=== PATIENT | female | born 1975 | race Caucasian/White ===

== ENCOUNTER 2016-12-07 17:13 | Emergency (ER) | payer MEDICAID ==
[2016-12-07 17:21] VITALS: BP 126/81
--- NOTE | 2016-12-07 17:52 | EDM.PDOC ---
ED HPI GENERAL MEDICAL PROBLEM - General Chief Complaint: Neuro Symptoms/Deficits Stated Complaint: LT SIDED NUMBNESS Time Seen by Provider: 12/07/16 17:30 Source of Information: Reports: Patient History Limitations: Reports: No Limitations - History of Present Illness INITIAL COMMENTS - FREE TEXT/NARRATIVE: Patient presents to ER with with concerns of left arm numbness and decreased strength. States arm feels very uncoordinated. She relates that around 1130 today she began to have left shoulder pain that eventually radiated down to her below her shoulder blade. Started while at work. 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 Went home but the pain has spread to her shoulder more. She now over the last 45 minutes has had a heaviness in her arm and it feels "awkward and numb". Feels weak. The pain in her shoulder is now radiating to her chest as well. Did feel pain with full inspiratory effort. No nausea. Was able to walk on her own in to ER. Relates only numbness to the left lateral thigh. Denies any difficulty with swallowing , visual defects. No seizure activity. Has not had any recent trauma. No real pain in her neck. Onset: Gradual Duration: Hour(s):, Getting Worse Location: Reports: Upper Extremity, Left Associated Symptoms: Reports: Weakness. Denies: Fever/Chills, Loss of Appetite , Nausea/Vomiting, Seizure, Syncope Left Arm Pain Score (Numeric/FACES): 7 - Related Data Allergies Allergy/AdvReac Type Severity Reaction Status Date / Time cefaclor [From Ceclor] Allergy Cannot Verified 01/01/16 11:34 Remember clarithromycin [From Biaxin] Allergy Hives Verified 01/01/16 11:34 epinephrine [From EpiPen] Allergy Cannot Verified 01/01/16 11:34 Remember erythromycin base Allergy Hives Verified 01/01/16 11:34 [Erythromycin Base] levofloxacin [From Levaquin] Allergy Hives Verified 01/01/16 11:34 Penicillins Allergy Hives Verified 01/01/16 11:34 Home Meds: Home Meds Albuterol [Ventolin HFA] 1 puff INH DAILY PRN 03/26/14 [History] Butalb/Acetaminophen/Caffeine [Esgic 50-325-40 MG] 1 tab PO DAILY PRN 03/26/14 [ History] lamoTRIgine [Lamictal] 1 tab PO DAILY 03/26/14 [History] Estradiol 1 mg PO DAILY 06/07/15 [History] Levothyroxine 75 mcg PO DAILY 06/07/15 [History] Vortioxetine Hydrobromide [Trintellix] 20 mg PO DAILY 06/07/15 [History] buPROPion [Wellbutrin XL] 150 mg PO DAILY 06/07/15 [History] Acetaminophen [Tylenol] 2 tab PO Q4H PRN 01/01/16 [History] Dextroamphetamine/Amphetamine [Dextroamp-Amphetamin 10 mg Tab] 1 tab PO BID [History] Diethylpropion HCl [Diethylpropion HCl ER] 1 tab PO DAILY 01/01/16 [History] Ibuprofen 2 tab PO Q6H PRN 01/01/16 [History] Past Medical History HEENT History: Reports: Allergic Rhinitis, Impaired Vision, Sinusitis Cardiovascular History: Reports: Heart Murmur, High Cholesterol Respiratory History: Reports: Asthma, Bronchitis, Recurrent, Sleep Apnea Gastrointestinal History: Reports: GERD, PUD Genitourinary History: Reports: UTI, Recurrent 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 Musculoskeletal History: Reports: Back Pain, Chronic, Gout Neurological History: Reports: Concussion, Migraines, Seizure Psychiatric History: Reports: Anxiety, Depression, Panic Attack, PTSD Endocrine/Metabolic History: Reports: Hypothyroidism, Obesity/BMI 30+, Vitamin D Deficiency Hematologic History: Reports: Anesthesia Reaction, Anemia - Past Surgical History HEENT Surgical History: Reports: Naso-Sinus Surgery GI Surgical History: Reports: Cholecystectomy Neurological Surgical History: Reports: Scoliosis Social & Family History - Family History Family Medical History: Noncontributory - Tobacco Use Smoking Status *Q: Never Smoker Years of Tobacco use: 1 Packs/Tins Daily: 0.5 Used Tobacco, but Quit: No Month Tobacco Last Used: april Second Hand Smoke Exposure: Yes - Caffeine Use Caffeine Use: Reports: None - Alcohol Use Days Per Week of Alcohol Use: 0 - Recreational Drug Use Recreational Drug Use: No ED ROS GENERAL - Review of Systems Review Of Systems: See Below Constitutional: Reports: Weakness. Denies: Fever, Chills, Malaise, Decreased Appetite HEENT: Reports: No Symptoms Respiratory: Denies: Shortness of Breath, Wheezing, Cough Cardiovascular: Reports: Chest Pain. Denies: Edema, Lightheadedness, Syncope Endocrine: Denies: Fatigue GI/Abdominal: Denies: Abdominal Pain, Nausea, Vomiting : Denies: Incontinence Musculoskeletal: Reports: Shoulder Pain, Arm Pain Skin: Reports: No Symptoms Neurological: Reports: Paresthesia, Tingling, Weakness. Denies: Difficulty Walking, Gait Disturbance Psychiatric: Reports: No Symptoms ED EXAM, NEURO - Physical Exam Exam: See Below Exam Limited By: No Limitations General Appearance: Alert, WD/WN, No Apparent Distress Eye Exam: Bilateral Eye: EOMI, PERRL Ears: Normal External Exam, Normal TMs Nose: Normal Inspection, Normal Mucosa, No Blood Throat/Mouth: Normal Inspection, Normal Oropharynx Head Exam: Normocephalic Neck: Normal Inspection, Supple, Full Range of Motion, Tender Lateral (tender to left trapezius, lateral neck.) Respiratory/Chest: No Respiratory Distress, Lungs Clear, Normal Breath Sounds Cardiovascular: Normal Peripheral Pulses, Regular Rate, Rhythm GI/Abdominal: Normal Bowel Sounds, Soft, Non-Tender Neurological: Alert, Normal Gait, Oriented x 3, Abnormal Finger to Nose, Abnormal Motor, Other (abnormal ROLA; difficulty controlling motion with arm; uncoordinated.) Back Exam: Normal Inspection, Full Range of Motion Extremities: Normal Inspection, Other (abnormal range of motion to left arm) Psychiatric: Normal Affect, Normal Mood Skin Exam: Warm, Dry Course - Vital Signs Last Recorded V/S: Last Vital Signs Temp 97.3 F 12/07/16 17:19 Pulse 90 12/07/16 17:19 Resp 20 12/07/16 17:19 BP 126/81 12/07/16 17:19 Pulse Ox 96 12/07/16 17:19 - Orders/Labs/Meds Orders: Active Orders 24 hr Category Date Time Status C-Spine [Cervical Spine wo Cont] [CT] Stat Exams 12/07/16 18:23 Taken Chest 2V [CR] Timed Exams 12/07/16 17:40 Taken Head wo Cont [CT] Stat Exams 12/07/16 17:38 Taken Labs: Laboratory Tests 12/07/16 12/07/16 12/07/16 Range/Units 17:37 17:38 17:38 WBC 7.2 (5.0-10.0) 10^3/uL RBC 4.05 (4.00-5.50) 10^6/uL Hgb 11.5 L (12.0-16.0) g/dL Hct 35.3 L (37.0-47.0) % MCV 87.2 (82.0-94.0) fL MCH 28.4 (27.0-32.0) pg MCHC 32.6 L (33.0-38.0) g/dL RDW Coeff of Jaren 13.7 (11.0-15.0) % Plt Count 209 (150-400) 10^3/uL Neut % (Auto) 48.5 (35-85) % Lymph % (Auto) 43.8 (10-55) % [place] % (Auto) 6.2 (0-16) % Eos % (Auto) 1.4 (0-5) % Baso % (Auto) 0.1 (0-3) % Neut # (Auto) 3.50 (1.80-7.00) 10^3/uL Lymph # (Auto) 3.17 (1.00-4.80) 10^3/uL [place] # (Auto) 0.45 (0.00-0.80) 10^3/uL Eos # (Auto) 0.10 (0.00-0.45) 10^3/uL Baso # (Auto) 0.01 10^3/uL D-Dimer, Quantitative 0.36 (0.00-0.50) Sodium 142 (136-145) mEq/L Potassium 3.6 (3.5-5.0) mEq/L Chloride 106 (98-106) mEq/L Carbon Dioxide 25 (21-32) mmol/L BUN 15 (7-18) mg/dL Creatinine 0.8 (0.6-1.0) mg/dL Est Cr Clr Drug Dosing 100.07 mL/min Estimated GFR (MDRD) > 60 (>=60) mL/min Glucose 105 H (75-99) mg/dL Calcium 8.9 (8.4-10.1) mg/dL Lactate Dehydrogenase 186 (100-190) U/L Creatine Kinase 173 (21-215) U/L Troponin I < 0.017 (0.00-0.06) ng/mL - Re-Assessments/Exams Free Text/Narrative Re-Assessment/Exam: 12/07/16 1830 Labs are normal. Awaiting CT results. 12/07/16 19:30 Contacted Mabel for consult on patient. Recommend MRI of brain tomorrow. Will give injections now for muscle spasms/pain in shoulder. Departure - Departure Time of Disposition: 18:58 Disposition: Home, Self-Care 01 Condition: Fair Clinical Impression: Arm paresthesia, left Left shoulder pain Qualifiers: Chronicity: acute Qualified Code(s): M25.512 - Pain in left shoulder - Discharge Information Forms: ED Department Discharge Additional Instructions: 1. Rest 2. Ice or heat to shoulder blade region 3. Slow range of motion with left arm. 4. Will schedule MRI of brain tomorrow and notify you when scheduled 5. Return if any neurological changes occur - My Orders Last 24 Hours: My Active Orders 12/07/16 17:38 Head wo Cont [CT] Stat 12/07/16 17:40 Chest 2V [CR] Timed 12/07/16 18:23 C-Spine [Cervical Spine wo Cont] [CT] Stat - Assessment/Plan Last 24 Hours: My Active Orders 12/07/16 17:38 Head wo Cont [CT] Stat 12/07/16 17:40 Chest 2V [CR] Timed 12/07/16 18:23 C-Spine [Cervical Spine wo Cont] [CT] Stat
[2016-12-07 18:18] LABS: CHLORIDE,CL 106 mEq/L (98-106); SODIUM,NA 142 mEq/L (136-145)
[2016-12-07] MEDS ORDERED: Ketorolac 60 MG/2 ML SDV IM ONE (19:48)
== END 2016-12-07 20:15 | disposition home or self-care (01) ==
LOC: CC.ED 17:13
DX: M25.512 Pain in left shoulder (principal); E78.00 Pure hypercholesterolemia, unspecified; J45.909 Unspecified asthma, uncomplicated; E03.9 Hypothyroidism, unspecified; E66.9 Obesity, unspecified; F41.9 Anxiety disorder, unspecified; F32.9 Major depressive disorder, single episode, unspecified; Z90.49 Acquired absence of other specified parts of digestive tract; Z98.890 Other specified postprocedural states; D64.9 Anemia, unspecified; Z88.0 Allergy status to penicillin; Z88.1 Allergy status to other antibiotic agents; Z88.8 Allergy status to other drugs, medicaments and biological substances
CPT/HCPCS: 36415; 70450; 71020; 72125; 80048; 82550; 83615; 84484; 85025; 85379; 93005; 96372; 99284; J1885; J2360

== ENCOUNTER 2017-10-10 20:16 | Emergency (ER) | payer SELFPAY ==
[2017-10-10 20:24] VITALS: BP 149/99
--- NOTE | 2017-10-10 21:17 | EDM.PDOC ---
ED HPI GENERAL MEDICAL PROBLEM - General Chief Complaint: Laceration Stated Complaint: laceration right thumb Time Seen by Provider: 10/10/17 20:38 - History of Present Illness INITIAL COMMENTS - FREE TEXT/NARRATIVE: Vanessa is a 42 year old female who presents to the Ed with c/o laceration to her right thumb. She reports she was using a razor blade to make "Donya cups" when the razor blade caught and slipped and cut her right thumb. She reports it was bleeding pretty bad so she presented to the ED. She does report some numbness. Bleeding is controlled with pressure. Onset: Today, Sudden Onset Date: 10/10/17 Onset Time: 20:00 Location: Reports: Upper Extremity, Right Quality: Reports: Sharp Severity: Severe Associated Symptoms: Reports: No Other Symptoms Right 1-Thumb Pain Score (Numeric/FACES): 8 - Related Data Allergies Allergy/AdvReac Type Severity Reaction Status Date / Time cefaclor [From Ceclor] Allergy Cannot Verified 10/10/17 20:24 Remember clarithromycin [From Biaxin] Allergy Hives Verified 10/10/17 20:24 epinephrine [From EpiPen] Allergy Cannot Verified 10/10/17 20:24 Remember erythromycin base Allergy Hives Verified 10/10/17 20:24 [Erythromycin Base] levofloxacin [From Levaquin] Allergy Hives Verified 10/10/17 20:24 Penicillins Allergy Hives Verified 10/10/17 20:24 Home Meds: Home Meds Albuterol [Ventolin HFA] 1 puff INH DAILY PRN 03/26/14 [History] Butalb/Acetaminophen/Caffeine [Esgic 50-325-40 MG] 1 tab PO DAILY PRN 03/26/14 [ History] lamoTRIgine [Lamictal] 200 mg PO DAILY 03/26/14 [History] Estradiol 1 mg PO DAILY 06/07/15 [History] Levothyroxine 75 mcg PO DAILY 06/07/15 [History] Vortioxetine Hydrobromide [Trintellix] 20 mg PO DAILY 06/07/15 [History] buPROPion [Wellbutrin XL] 150 mg PO DAILY 06/07/15 [History] Acetaminophen [Tylenol] 2 tab PO Q4H PRN 01/01/16 [History] Dextroamphetamine/Amphetamine [Dextroamp-Amphetamin 10 mg Tab] 1 tab PO BID [History] Ibuprofen 2 tab PO Q6H PRN 01/01/16 [History] LORazepam 1 mg PO Q8H PRN 10/10/17 [History] Past Medical History HEENT History: Reports: Allergic Rhinitis, Impaired Vision, Sinusitis Cardiovascular History: Reports: Heart Murmur, High Cholesterol, Other (See Below) Other Cardiovascular History: hypotension Respiratory History: Reports: Asthma, Bronchitis, Recurrent, Sleep Apnea Gastrointestinal History: Reports: GERD, PUD Genitourinary History: Reports: UTI, Recurrent 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 Musculoskeletal History: Reports: Back Pain, Chronic, Gout Neurological History: Reports: Concussion, Migraines, Seizure Psychiatric History: Reports: ADD, Anxiety, Depression, Panic Attack, PTSD Endocrine/Metabolic History: Reports: Hypothyroidism, Obesity/BMI 30+, Vitamin D Deficiency Hematologic History: Reports: Anesthesia Reaction, Anemia - Past Surgical History HEENT Surgical History: Reports: Naso-Sinus Surgery GI Surgical History: Reports: Cholecystectomy Neurological Surgical History: Reports: Scoliosis Social & Family History - Family History Family Medical History: Noncontributory - Tobacco Use Smoking Status *Q: Current Every Day Smoker Years of Tobacco use: 5 Packs/Tins Daily: 0.2 Used Tobacco, but Quit: No Month/Year Tobacco Last Used: april Second Hand Smoke Exposure: Yes - Caffeine Use Caffeine Use: Reports: None - Alcohol Use Days Per Week of Alcohol Use: 0 - Recreational Drug Use Recreational Drug Use: No ED ROS GENERAL - Review of Systems Review Of Systems: ROS reveals no pertinent complaints other than HPI. ED EXAM, SKIN/RASH Exam: See Below Exam Limited By: No Limitations General Appearance: Alert, WD/WN, No Apparent Distress Peripheral Pulses: 2+: Radial (R) Skin: Other (Laceration) Location, Skin: Upper Extremity, Right (right thumb) Associated features: Tenderness. No: Warmth, Swelling Course - Vital Signs Last Recorded V/S: Last Vital Signs Temp 97.1 F 10/10/17 20:20 Pulse 76 10/10/17 20:20 Resp 20 10/10/17 20:20 BP 149/99 H 10/10/17 20:20 Pulse Ox 95 10/10/17 20:20 - Re-Assessments/Exams Free Text/Narrative Re-Assessment/Exam: Wound cleansed with wound high pressure cleaner. Superficial laceration closed with steri strips. Skin glue applied to area of steri strip attachment. Area covered with bandaid. Tolerated well. Departure - Departure Time of Disposition: 21:12 Disposition: Home, Self-Care 01 Condition: Good Clinical Impression: Laceration of right thumb Qualifiers: Encounter type: initial encounter Damage to nail status: without damage Foreign body presence: without foreign body Qualified Code(s): S61.011A - Laceration without foreign body of right thumb without damage to nail, initial encounter - Discharge Information Instructions: Laceration Care, Adult, [id number] Referrals: Michael Keith MD [Primary Care Provider] - Additional Instructions: Steri strips applied. Keep clean and dry for next 3 days Neosporin to affected area as needed once steri strips fall off Tylenol or ibuprofen as needed for pain Return to ER for any emergent needs Follow up with PCP as needed
== END 2017-10-10 21:20 | disposition home or self-care (01) ==
LOC: CC.ED 20:16
DX: S61.011A Laceration without foreign body of right thumb without damage to nail, initial encounter (principal); E66.9 Obesity, unspecified; J45.909 Unspecified asthma, uncomplicated; F17.210 Nicotine dependence, cigarettes, uncomplicated; Z88.8 Allergy status to other drugs, medicaments and biological substances; Z88.1 Allergy status to other antibiotic agents; Z88.0 Allergy status to penicillin; Z79.899 Other long term (current) drug therapy; W26.8XXA Contact with other sharp object(s), not elsewhere classified, initial encounter
CPT/HCPCS: 99282

== ENCOUNTER 2018-03-05 16:08 | Emergency (ER) | payer OTHER ==
[2018-03-05 16:54] VITALS: BP 119/81
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
== END 2018-03-05 17:55 | disposition home or self-care (01) ==
LOC: CC.ED 16:08
DX: S60.211A Contusion of right wrist, initial encounter (principal); S90.511A Abrasion, right ankle, initial encounter; S70.311A Abrasion, right thigh, initial encounter; Z88.8 Allergy status to other drugs, medicaments and biological substances; Z88.0 Allergy status to penicillin; Z88.1 Allergy status to other antibiotic agents; Z79.899 Other long term (current) drug therapy; V89.2XXA Person injured in unspecified motor-vehicle accident, traffic, initial encounter
CPT/HCPCS: 73090-RT; 73130-RT; 73610-RT; 73630-RT; 99284

== ENCOUNTER 2021-06-08 10:42 | Emergency (ER) | payer MEDICAID ==
[2021-06-08 10:46] VITALS: BP 115/74; PULSE 81
--- NOTE | 2021-06-08 11:23 | EDM.PDOC ---
ED HPI GENERAL MEDICAL PROBLEM - General Chief Complaint: General Stated Complaint: Post Seizure Time Seen by Provider: 06/08/21 10:58 Source of Information: Reports: Patient History Limitations: Reports: No Limitations - History of Present Illness INITIAL COMMENTS - FREE TEXT/NARRATIVE: This is a 45-year-old female patient that presented to the emergency department via [facility]. EMS reports that patient had a seizure that lasted about 2 minutes per bystanders. Patient is alert and oriented history upon arrival in the ER. States that she does have a history of seizure disorder and had not had a seizure for about 2 years up until about 3 weeks ago. In the last 3 weeks she has had 3 reported seizures. States that this time a year is very stressful for her. In the past she stated stress is a cause for her seizures. Has been taking lamotrigine for several years without adjustments that she is aware of. States that she has had intermittent diarrhea for about 1 week. Denies any other signs of illness such as fever, shortness of breath, nausea, or vomiting. Denies any urinary symptoms such as dysuria, urgency, pain with urination. Her last follow-up with her primary was in January for a yearly exam and she is on well aware if her lamotrigine levels have been checked. Denies trauma related to this occurrence of seizure. No incontinence of urine and states that she did void prior to seizure. Also states some weakness to the left arm which she states is normal. The seizure was described as a tonic- clonic in nature. Patient is not postictal however states she feels tired. Onset: Today - Related Data Allergies Allergy/AdvReac Type Severity Reaction Status Date / Time cefaclor [From Ceclor] Allergy Cannot Verified 06/08/21 10:46 Remember cefazolin Allergy Rash Verified 06/08/21 10:46 clarithromycin [From Biaxin] Allergy Hives Verified 06/08/21 10:46 epinephrine [From EpiPen] Allergy Cannot Verified 06/08/21 10:46 Remember erythromycin base Allergy Hives Verified 06/08/21 10:46 [Erythromycin Base] levofloxacin [From Levaquin] Allergy Hives Verified 06/08/21 10:46 morphine Allergy Hives Verified 06/08/21 10:46 Penicillins Allergy Hives Verified 06/08/21 10:46 Home Meds: Home Meds Albuterol [Ventolin HFA] 2 puff INH ASDIRECTED PRN 03/26/14 [History] lamoTRIgine [Lamictal] 200 mg PO DAILY 03/26/14 [History] Acetaminophen/Butalbital/Caff [Fioricet 325-50-40 MG] 1 tab PO Q6H PRN 11/13/19 [History] Cholecalciferol (Vitamin D3) [Vitamin D3] 1,000 unit PO DAILY 11/13/19 [History] Levothyroxine [Synthroid] 88 mcg PO ACBREAKFAST 11/13/19 [History] Lisdexamfetamine [Vyvanse] 50 mg PO DAILY 11/13/19 [History] Magnesium 200 mg PO DAILY 11/13/19 [History] Propranolol [Inderal] 20 mg PO DAILY 11/13/19 [History] Vitamin B Complex 1 each PO DAILY 11/13/19 [History] estradioL [Estradiol] 1 mg PO DAILY 11/13/19 [History] ARIPiprazole [Abilify] 5 mg PO DAILY 06/08/21 [History] Vilazodone HCl [Viibryd] 10 mg PO DAILY 06/08/21 [History] gemfibroziL [Lopid] 600 mg PO DAILY 06/08/21 [History] Past Medical History HEENT History: Reports: Allergic Rhinitis, Impaired Vision, Sinusitis Cardiovascular History: Reports: Heart Murmur, High Cholesterol, Other (See Below) Other Cardiovascular History: hypotension Respiratory History: Reports: Asthma, Bronchitis, Recurrent, Sleep Apnea Gastrointestinal History: Reports: GERD, PUD Genitourinary History: Reports: UTI, Recurrent 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 Musculoskeletal History: Reports: Back Pain, Chronic, Gout Neurological History: Reports: Concussion, Migraines, Seizure Psychiatric History: Reports: ADD, Anxiety, Depression, Panic Attack, PTSD Endocrine/Metabolic History: Reports: Hypothyroidism, Obesity/BMI 30+, Vitamin D Deficiency Hematologic History: Reports: Anesthesia Reaction, Anemia - Past Surgical History HEENT Surgical History: Reports: Naso-Sinus Surgery GI Surgical History: Reports: Cholecystectomy Female Surgical History: Reports: Hysterectomy Neurological Surgical History: Reports: Scoliosis Social & Family History - Family History Family Medical History: No Pertinent Family History - Tobacco Use Tobacco Use Status *Q: Unknown Ever Used Tobacco Second Hand Smoke Exposure: No - Caffeine Use Caffeine Use: Reports: None - Recreational Drug Use Recreational Drug Use: No ED ROS GENERAL - Review of Systems Review Of Systems: Comprehensive ROS is negative, except as noted in HPI. ED EXAM, GENERAL - Physical Exam Exam: See Below Exam Limited By: No Limitations General Appearance: Alert, WD/WN, No Apparent Distress Eye Exam: Bilateral Eye: PERRL Ears: Normal External Exam, Hearing Grossly Normal Nose: Normal Inspection, Normal Mucosa, No Blood Throat/Mouth: Normal Inspection, Normal Lips, No Airway Compromise Head: Atraumatic, Normocephalic Neck: Normal Inspection, Supple, Non-Tender, Full Range of Motion Respiratory/Chest: No Respiratory Distress, Lungs Clear, Normal Breath Sounds. No: Crackles, Rales, Rhonchi, Wheezing Cardiovascular: Normal Peripheral Pulses, Regular Rate, Rhythm, No Gallop, No JVD, No Murmur, No Rub GI/Abdominal: Normal Bowel Sounds, Soft, Tender (Right lower quadrant tenderness extending to pelvic region) (Female) Exam: Deferred Rectal (Female) Exam: Deferred Back Exam: No: CVA Tenderness (L), CVA Tenderness (R) Extremities: Normal Inspection, Normal Range of Motion, No Pedal Edema Neurological: Alert, Oriented, Normal Cognition Psychiatric: Normal Affect, Normal Mood Skin Exam: Warm, Dry, Intact Lymphatic: No Adenopathy Course - Vital Signs Last Recorded V/S: Last Vital Signs Temp 96.9 F 06/08/21 10:44 Pulse 81 06/08/21 10:44 Resp 18 06/08/21 10:44 BP 115/74 06/08/21 10:44 Pulse Ox 96 06/08/21 10:44 - Orders/Labs/Meds Orders: Active Orders 24 hr Category Date Time Status LAMOTRIGINE, SERUM [REF] Stat Lab 06/08/21 11:21 Received Labs: Laboratory Tests 06/08/21 06/08/21 06/08/21 Range/Units 11:21 11:21 11:21 WBC 5.6 (4.0-11.0) 10^3/uL RBC 4.59 (4.00-5.50) x10^6/uL Hgb 13.5 (12.0-16.0) g/dL Hct 40.7 (37.0-47.0) % MCV 88.7 (83.0-97.0) fL MCH 29.4 (27.0-32.0) pg MCHC 33.2 (32.0-36.0) g/dL RDW Coeff of Jaren 13.0 (11.0-15.0) % Plt Count 268 (150-400) 10^3/uL Immature Gran % (Auto) 0.7 (0.0-4.9) % Neut % (Auto) 65.1 (41-71) % Lymph % (Auto) 25.1 (24-44) % [place] % (Auto) 7.3 (0-10) % Eos % (Auto) 1.4 (0-6) % Baso % (Auto) 0.4 (0-1) % Neut # (Auto) 3.65 (1.80-8.00) x10^3/uL Lymph # (Auto) 1.41 (0.60-5.00) 10^3/uL [place] # (Auto) 0.41 (0.00-1.50) 10^3/uL Eos # (Auto) 0.08 (0.00-1.50) 10^3/uL Baso # (Auto) 0.02 (0.00-0.50) 10^3/uL Immature Gran # (Auto) 0.04 (0.00-0.49) 10^3/uL Sodium 141 (136-145) mEq/L Potassium 4.1 (3.5-5.0) mEq/L Chloride 104 (98-106) mEq/L Carbon Dioxide 32 (21-32) mmol/L BUN 16 D (7-18) mg/dL Creatinine 0.5 L (0.6-1.0) mg/dL Est Cr Clr Drug Dosing 143.33 mL/min Estimated GFR (MDRD) > 60 (>=60) mL/min Glucose 97 (75-99) mg/dL Calcium 8.9 (8.4-10.1) mg/dL Total Bilirubin 0.3 (0.0-1.0) mg/dL AST 20 (15-37) U/L ALT 29 (12-78) U/L Alkaline Phosphatase 98 (46-116) U/L C-Reactive Protein < 0.2 L (0.2-0.8) mg/dL Total Protein 6.9 (6.4-8.2) g/dL Albumin 3.7 (3.4-5.0) g/dL Urine Color (YELLOW) Urine Appearance (CLEAR) Urine pH (4.5-8.0) Ur Specific [place] (1.003-1.020) Urine Protein (NEGATIVE) mg/dL Urine Glucose (UA) (NEGATIVE) mg/dL Urine Ketones (NEGATIVE) mg/dL Urine Occult Blood (NEGATIVE) Urine Nitrite (NEGATIVE) Urine Bilirubin (NEGATIVE) Urine Urobilinogen (0.2-1.0) EU/dL Ur Leukocyte Esterase (NEGATIVE) Urine RBC (0-5) /HPF Urine WBC (0-5) /HPF Ur Squamous Epith Cells (NOT SEEN) /HPF Urine Bacteria (NOT SEEN) /HPF SARS CoV-2 RNA Rapid GRICELDA Negative (NEGATIVE) 06/08/21 Range/Units 11:23 WBC (4.0-11.0) 10^3/uL RBC (4.00-5.50) x10^6/uL Hgb (12.0-16.0) g/dL Hct (37.0-47.0) % MCV (83.0-97.0) fL MCH (27.0-32.0) pg MCHC (32.0-36.0) g/dL RDW Coeff of Jaren (11.0-15.0) % Plt Count (150-400) 10^3/uL Immature Gran % (Auto) (0.0-4.9) % Neut % (Auto) (41-71) % Lymph % (Auto) (24-44) % [place] % (Auto) (0-10) % Eos % (Auto) (0-6) % Baso % (Auto) (0-1) % Neut # (Auto) (1.80-8.00) x10^3/uL Lymph # (Auto) (0.60-5.00) 10^3/uL [place] # (Auto) (0.00-1.50) 10^3/uL Eos # (Auto) (0.00-1.50) 10^3/uL Baso # (Auto) (0.00-0.50) 10^3/uL Immature Gran # (Auto) (0.00-0.49) 10^3/uL Sodium (136-145) mEq/L Potassium (3.5-5.0) mEq/L Chloride (98-106) mEq/L Carbon Dioxide (21-32) mmol/L BUN (7-18) mg/dL Creatinine (0.6-1.0) mg/dL Est Cr Clr Drug Dosing mL/min Estimated GFR (MDRD) (>=60) mL/min Glucose (75-99) mg/dL Calcium (8.4-10.1) mg/dL Total Bilirubin (0.0-1.0) mg/dL AST (15-37) U/L ALT (12-78) U/L Alkaline Phosphatase (46-116) U/L C-Reactive Protein (0.2-0.8) mg/dL Total Protein (6.4-8.2) g/dL Albumin (3.4-5.0) g/dL Urine Color Yellow (YELLOW) Urine Appearance Slightly cloudy (CLEAR) Urine pH 6.0 (4.5-8.0) Ur Specific [place] 1.025 H (1.003-1.020) Urine Protein Negative (NEGATIVE) mg/dL Urine Glucose (UA) Negative (NEGATIVE) mg/dL Urine Ketones Negative (NEGATIVE) mg/dL Urine Occult Blood Trace-intact H (NEGATIVE) Urine Nitrite Negative (NEGATIVE) Urine Bilirubin Negative (NEGATIVE) Urine Urobilinogen 0.2 (0.2-1.0) EU/dL Ur Leukocyte Esterase Negative (NEGATIVE) Urine RBC 0-5 (0-5) /HPF Urine WBC 0-5 (0-5) /HPF Ur Squamous Epith Cells Moderate H (NOT SEEN) /HPF Urine Bacteria Few H (NOT SEEN) /HPF SARS CoV-2 RNA Rapid GRICELDA (NEGATIVE) - Re-Assessments/Exams Free Text/Narrative Re-Assessment/Exam: This is a 45-year-old female that presented after having a seizure. Patient does have a history of seizures. Completed a CBC, CMP, CRP, Covid, and urinalysis. Also ordered a lamotrigine level to be sent out. CBC, CMP, and CRP are unremarkable. A Covid screen was negative. The UA showed trace blood with moderate squamous epithelials and few bacteria. UA was negative for leukocyte esterase and nitrites. There is no evidence of infection. Plan will be to send results of the lamotrigine level to her primary care provider to determine if adjustments need to be made in her medication. Follow- up with her primary care provider pending those results. Call or return to the emergency department if condition worsens or if you have questions. Departure - Departure Time of Disposition: 11:54 Disposition: Home, Self-Care 01 Condition: Good Clinical Impression: Seizure disorder - Discharge Information *PRESCRIPTION DRUG MONITORING PROGRAM REVIEWED*: Not Applicable *COPY OF PRESCRIPTION DRUG MONITORING REPORT IN PATIENT ESTRELLA: Not Applicable Instructions: Seizure, Adult Forms: ED Department Discharge Additional Instructions: 1. Take prescribed seizure medication as directed. 2. Follow-up with primary care provider upon lamotrigine levels. Medication may need to be adjusted dependent upon this level. 3. Consider following up with your mental health specialist to assist in handling your stress levels. 4.. Stay hydrated by drinking plenty of fluids. 5. May call or return if condition worsens or if you have questions. Sepsis Event Note (ED) - Evaluation Sepsis Screening Result: No Definite Risk - Focused Exam Vital Signs: Vital Signs Temp Pulse Resp BP Pulse Ox 06/08/21 10:44 96.9 F 81 18 115/74 96 - My Orders Last 24 Hours: My Active Orders 06/08/21 11:21 LAMOTRIGINE, SERUM [REF] Stat - Assessment/Plan Last 24 Hours: My Active Orders 06/08/21 11:21 LAMOTRIGINE, SERUM [REF] Stat
[2021-06-08 11:38] LABS: CHLORIDE,CL 104 mEq/L (98-106); SODIUM,NA 141 mEq/L (136-145)
== END 2021-06-08 12:07 | disposition home or self-care (01) ==
LOC: CC.ED 10:42
DX: G40.909 Epilepsy, unspecified, not intractable, without status epilepticus (principal); J45.909 Unspecified asthma, uncomplicated; E03.9 Hypothyroidism, unspecified; E66.9 Obesity, unspecified; Z68.35 Body mass index [BMI] 35.0-35.9, adult; Z88.1 Allergy status to other antibiotic agents; Z88.8 Allergy status to other drugs, medicaments and biological substances; Z88.5 Allergy status to narcotic agent; Z88.0 Allergy status to penicillin; Z79.899 Other long term (current) drug therapy; Z20.822 Contact with and (suspected) exposure to COVID-19
CPT/HCPCS: 36415; 80053; 80175; 81001; 85025; 86140; 99284; U0002

== ENCOUNTER 2022-04-20 14:17 | Emergency (ER) | payer MEDICAID ==
[2022-04-20 15:05] LABS: CHLORIDE,CL 104 mEq/L (98-106); SODIUM,NA 142 mEq/L (136-145)
[2022-04-20 15:10] LABS: ESTIMATED GFR 92 mL/min (>=60)
[2022-04-20 15:26] VITALS: BP 104/65; PULSE 76
== END 2022-04-20 15:46 | disposition home or self-care (01) ==
LOC: CC.ED 14:17 → UNDOADMOB 15:22 → CC.MS 15:22 → CC.ED 15:46
DX: G40.909 Epilepsy, unspecified, not intractable, without status epilepticus (principal); J01.00 Acute maxillary sinusitis, unspecified; E78.00 Pure hypercholesterolemia, unspecified; E03.9 Hypothyroidism, unspecified; E66.9 Obesity, unspecified; Z68.32 Body mass index [BMI] 32.0-32.9, adult; Z88.0 Allergy status to penicillin; Z88.4 Allergy status to anesthetic agent; Z88.1 Allergy status to other antibiotic agents; Z88.5 Allergy status to narcotic agent; Z79.899 Other long term (current) drug therapy
CPT/HCPCS: 36415; 71046; 80053; 81001; 85025; 86140; 99284

== ENCOUNTER → 2022-06-17 | Day surgery (SDC) | payer MEDICAID ==
[~2022-06-17] MED LIST: Ketamine 200 MG/20 ML MDV ONE; Lactated Ringers 1,000 ML IV SCH; Midazolam 1 MG/ML 2 ML SDV ONE; Propofol 200 MG/20 ML SDV ONE; fentaNYL 50 MCG/ML SDV ONE
[2022-06-17 08:53] VITALS: BP 117/72; PULSE 92
== END ==
LOC: CC.SDS 07:07
PROVIDERS: ATTEND Family Medicine
DX: Z12.11 Encounter for screening for malignant neoplasm of colon (principal); D12.0 Benign neoplasm of cecum; K57.30 Diverticulosis of large intestine without perforation or abscess without bleeding; E78.5 Hyperlipidemia, unspecified; E03.9 Hypothyroidism, unspecified; F32.A Depression, unspecified; G47.33 Obstructive sleep apnea (adult) (pediatric); E55.9 Vitamin D deficiency, unspecified; F90.9 Attention-deficit hyperactivity disorder, unspecified type; G43.909 Migraine, unspecified, not intractable, without status migrainosus; I10 Essential (primary) hypertension; D64.9 Anemia, unspecified; E04.1 Nontoxic single thyroid nodule; K21.9 Gastro-esophageal reflux disease without esophagitis; J45.909 Unspecified asthma, uncomplicated; F17.210 Nicotine dependence, cigarettes, uncomplicated; Z80.0 Family history of malignant neoplasm of digestive organs; Z88.0 Allergy status to penicillin; Z88.6 Allergy status to analgesic agent; Z88.1 Allergy status to other antibiotic agents; Z79.899 Other long term (current) drug therapy; Z79.890 Hormone replacement therapy
CPT/HCPCS: J2250; J2704; J3010; J7120

== ENCOUNTER 2025-03-20 02:51 | Emergency (ER) | payer OTHER ==
[2025-03-20] MEDS ORDERED: Sodium Chloride 0.9% 10 ML Syringe FLUSH PRN (03:17)
[2025-03-20 03:44] LABS: BASOPHILS ABSOLUTE AUTO 0.02 10^3/uL (0.00-0.50); BASOPHILS PERCENT AUTO 0.1 % (0-1); EOSINOPHILS ABSOLUTE AUTO 0.03 10^3/uL (0.00-1.50); EOSINOPHILS PERCENT AUTO 0.2 % (0-6); IMMATURE GRAN ABSOLUTE AUTO 0.04 10^3/uL (0.00-0.49); IMMATURE GRAN PERCENT AUTO 0.2 % (0.0-4.9); LYMPHOCYTES ABSOLUTE AUTO 1.20 10^3/uL (0.60-5.00); LYMPHOCYTES PERCENT AUTO 7.3 % (24-44); MONOCYTES ABSOLUTE AUTO 0.75 10^3/uL (0.00-1.50); MONOCYTES PERCENT AUTO 4.6 % (0-10); NEUTROPHILS ABSOLUTE AUTO 14.32 x10^3/uL (1.80-8.00); NEUTROPHILS PERCENT AUTO 87.6 % (41-71); PLATELET COUNT,PLT 287 10^3/uL (150-400); RED BLOOD CELL COUNT 4.34 x10^6/uL (4.00-5.50); WHITE BLOOD CELL COUNT,WBC 16.4 10^3/uL (4.0-11.0)
[2025-03-20 03:46] LABS: APPEARANCE,URINE CLOUDY (CLEAR); GLUCOSE,URINE NEGATIVE (NEGATIVE); OCCULT BLOOD,URINE MODERATE (NEGATIVE)
[2025-03-20 03:58] LABS: EPITHELIAL CELLS,URINE OCCASIONAL /HPF (NOT SEEN)
[2025-03-20 03:59] LABS: AMPHETAMINES,URINE NEGATIVE (NEGATIVE); BARBITURATES,URINE NEGATIVE (NEGATIVE); MDMA (ECSTASY), URINE NEGATIVE (NEGATIVE); METHAMPHETAMINES,URINE NEGATIVE (NEGATIVE); OPIATES,URINE NEGATIVE (NEGATIVE); OXYCODONE,URINE NEGATIVE (NEGATIVE); PHENCYCLIDINE,URINE NEGATIVE (NEGATIVE); TCA,URINE NEGATIVE (NEGATIVE)
[2025-03-20 04:00] LABS: ALANINE AMINOTRANSFERASE,ALT 38.0 U/L (12-78); ASPARTATE AMNIOTRANSFERASE,AST 25.0 U/L (15-37); BILIRUBIN TOTAL 0.8 mg/dL (0.0-1.0); BLOOD UREA NITROGEN,BUN 7.0 mg/dL (7-18); CARBON DIOXIDE,CO2 27.0 mmol/L (21-32); CHLORIDE,CL 100.0 mEq/L (98-106); CREATININE 0.9 mg/dL (0.6-1.0); EST CRCL DRUG DOSING (CG) 79.02 mL/min; ESTIMATED GFR 78.0 mL/min (>=60); GLUCOSE RANDOM 119.0 mg/dL (75-99); POTASSIUM,K 3.7 mEq/L (3.5-5.0); PROTEIN TOTAL,TP 6.7 g/dL (6.4-8.2); SODIUM,NA 134.0 mEq/L (136-145)
[2025-03-20 04:02] LABS: LACTIC ACID 1.0 mmol/L (0.4-2.0)
[2025-03-20 04:04] LABS: INR 1.05 (0.92-1.18); PTT,PARTIAL THROMBOPLSTIN TIME 28.6 SEC (20.0-30.0)
[2025-03-20] MEDS: Iopamidol 755 Mg/ML 100 ML Bottle IVPUSH ONE ×2 (04:45→06:11)
[2025-03-20] MEDS: Ondansetron 4 MG/2 ML SDV IVPUSH ONE (05:30)
[2025-03-20 05:54] VITALS: BP 143/81; PULSE 113
[2025-03-20] MEDS: metroNIDAZOLE/Normal Saline 500 MG in Premix Bag 1 BAG IV ONE (06:11)
== END 2025-03-20 08:00 | disposition critical access hospital (66) ==
LOC: CC.ED 02:51
DX: K35.80 Unspecified acute appendicitis (principal); E78.00 Pure hypercholesterolemia, unspecified; K21.9 Gastro-esophageal reflux disease without esophagitis; E03.9 Hypothyroidism, unspecified; F17.210 Nicotine dependence, cigarettes, uncomplicated; Z90.49 Acquired absence of other specified parts of digestive tract; Z88.1 Allergy status to other antibiotic agents; Z88.0 Allergy status to penicillin; Z88.5 Allergy status to narcotic agent; Z88.8 Allergy status to other drugs, medicaments and biological substances; Z79.890 Hormone replacement therapy; Z79.899 Other long term (current) drug therapy
CPT/HCPCS: 36415; 74177; 80053; 80305-QW; 81001; 83605; 83690; 85025; 85610; 85730; 86140; 87040; 96361; 96374; 96375; 96376; 99285-25; J1171; J1335; J2405; J7030; Q9967